=== PATIENT | male | born 1965 | race Caucasian/White ===

== ENCOUNTER 2022-10-17 14:38 | Emergency (ER) | payer OTHER, BC ==
[2022-10-17] MEDS ORDERED: Ondansetron 4 MG/2 ML SDV IVPUSH PRN (14:41)
[2022-10-17] MEDS ORDERED: HYDROmorphone 0.5 MG/0.5 ML Syringe IVPUSH PRN (14:41)
[2022-10-17] MEDS ORDERED: Sodium Chloride 0.9% 10 ML Syringe FLUSH PRN (14:41)
[2022-10-17] MEDS ORDERED: Lidocaine 1% 5 ML VIAL INJECT ONE ×2 (15:30→15:42)
[2022-10-17] MEDS ORDERED: Bacitracin Oint 1 GM U/D Packet TOP ONE (16:22)
[2022-10-17] MEDS ORDERED: Diphtheria,Pertussis(Acell),Tetanus Vaccine 0.5 ML Syringe IM ONE (16:53)
== END 2022-10-17 17:13 | disposition home or self-care (01) ==
LOC: LL.ED 14:38
DX: S61.217A Laceration without foreign body of left little finger without damage to nail, initial encounter (principal); I10 Essential (primary) hypertension; K21.9 Gastro-esophageal reflux disease without esophagitis; Z23 Encounter for immunization; W31.89XA Contact with other specified machinery, initial encounter
CPT/HCPCS: 12001; 73140; 90471; 90715; 96374; 96375; 99283; J1170; J2405; J3490